=== PATIENT | female | born 1995 | race Caucasian/White ===

== ENCOUNTER → 2016-10-04 | Outpatient (CLI) | payer BC ==
--- NOTE | 2016-10-04 11:49 | XR ---
EXAMINATION TYPE: XR wrist complete RT DATE OF EXAM: 10/04/2016 11:43 AM COMPARISON: NONE HISTORY: Pain TECHNIQUE: Four views submitted. FINDINGS: The osseous structures are intact. The joint spaces are preserved and there is no acute fracture or dislocation. IMPRESSION: 1. No definite acute fracture or dislocation if symptoms persist, follow-up study in 7 to 10 days wo uld be suggested
== END ==
LOC: RADXRMAIN 11:30
PROVIDERS: ATTEND Family Medicine
DX: M25.531 Pain in right wrist (principal)

== ENCOUNTER → 2018-08-14 | Outpatient (CLI) | payer BC ==
--- NOTE | 2018-08-15 08:45 | XR ---
EXAMINATION TYPE: XR knee complete bilateral DATE OF EXAM: 08/14/2018 COMPARISON: NONE HISTORY: Pain TECHNIQUE: Three views are submitted of each knee. FINDINGS: Joint spaces are preserved. Osseous structures are intact. No acute fracture seen. Small amount of fluid in the suprapatellar bursa. IMPRESSION: 1. No acute fracture or dislocation. There is a small amount of fluid in the suprapatellar bursa. If symptoms persist or concern for internal derangement consider MRI.
== END | disposition home or self-care (01) ==
LOC: RADXRMAIN 15:51
PROVIDERS: ATTEND Family Medicine
DX: M25.462 Effusion, left knee (principal); M25.461 Effusion, right knee; M23.90 Unspecified internal derangement of unspecified knee

== ENCOUNTER → 2018-08-20 | Outpatient (CLI) | payer BC ==
--- NOTE | 2018-08-20 15:40 | MR ---
EXAMINATION TYPE: MR knee RT wo con DATE OF EXAM: 08/20/2018 COMPARISON: Bilateral knee x-ray from 6 days ago. HISTORY: Outer Right knee pain for 2 to 3 months after recent fall injury per patient. Internal arran gement of right knee per order. TECHNIQUE: Multiplanar, multisequence images of the knee is performed without IV contrast. FINDINGS: MEDIAL MENISCUS: Anterior and posterior horns are intact without tear. LATERAL MENISCUS: Anterior and posterior horns are intact without tear. CRUCIATE LIGAMENTS: The anterior and posterior cruciate ligaments are intact and unremarkable. COLLATERAL LIGAMENTS: The medial collateral ligament and lateral collateral ligament complex are inta ct and unremarkable. EXTENSOR MECHANISM: Visualized quadriceps and patellar tendons are intact. EFFUSION: No significant suprapatellar joint effusion. POPLITEAL CYST: No popliteal/johnson cyst. TRICOMPARTMENT SPACES: Mild narrowing and spurring patellofemoral compartment is present. CARTILAGE: Tricompartment articular cartilage is preserved, there is no significant chondromalacia pa tella. BONE MARROW SIGNAL: A 3 mm low T1 and T2 focus anterolateral tibial plateau sagittal image 23 and cor onal image 15 is presumed benign. OTHER: Small amount of increased fluid posterior lateral knee muscles is noted. IMPRESSION: Muscular strain injury posterior lateral knee muscles involving lateral gastrocnemius. No meniscal or ligamentous tear is seen.
== END | disposition home or self-care (01) ==
LOC: RADMRIMAIN 12:04
PROVIDERS: ATTEND Family Medicine
DX: S86.811A Strain of other muscle(s) and tendon(s) at lower leg level, right leg, initial encounter (principal)

== ENCOUNTER → 2018-10-09 | Outpatient (CLI) | payer BC ==
[2018-10-09 11:36] LABS: Potassium 4.4 mmol/L (3.5-5.1)
[2018-10-09 11:53] LABS: Basophils # (A) 0.1 k/uL (0-0.2); Basophils % (A) 1 %; Eosinophils # (A) 0.1 k/uL (0-0.7); Eosinophils % (A) 2 %; HCT 43.7 % (34.0-46.0); Lymphocytes # (A) 1.3 k/uL (1.0-4.8); Lymphocytes % (A) 23 %; MCH 29.9 pg (25.0-35.0); MCV 93.5 fL (80.0-100.0); Mean Platelet Volume 7.7; Monocytes # (A) 0.4 k/uL (0-1.0); Monocytes % (A) 7 %; Neutrophils # (A) 3.7 k/uL (1.3-7.7); Neutrophils % (A) 65 %; Platelet Count 259 k/uL (150-450); RBC 4.67 m/uL (3.80-5.40); RDW 12.6 % (11.5-15.5); WBC 5.6 k/uL (3.8-10.6)
== END | disposition home or self-care (01) ==
LOC: LABPAT 10:14
PROVIDERS: ATTEND Orthopaedic Surgery
DX: Z01.812 Encounter for preprocedural laboratory examination (principal); M23.91 Unspecified internal derangement of right knee
CPT/HCPCS: 80051; 85025

== ENCOUNTER 2018-10-23 08:53 | Day surgery (SDC) | payer BC ==
[2018-10-21 12:29] VITALS: BMI 24.8
--- NOTE | 2018-10-22 10:13 | HP ---
HISTORY AND PHYSICAL DATE OF SERVICE: 10/23/2018 Kwame Francis is a 23-year-old patient seen with progressive right knee pain. We discussed options. She elected to proceed with arthroscopy. Consent was obtained. PAST MEDICAL HISTORY: Noncontributory. PAST SURGICAL HISTORY: Noncontributory. DAILY MEDICATIONS: None. ALLERGIES: None reported. SOCIAL HISTORY: She denies tobacco use. PHYSICAL EVALUATION OF THE RIGHT KNEE: Range of motion is +3 to 135 degrees. Tenderness along the medial joint line. Positive medial Castro's. Patellar crepitus. Some patellofemoral compression. Ligaments stable. Hip rotation without pain. Distal neurovascular exam is intact. Radiographs of the right knee revealed mild osteoarthritic changes. An MRI of the right knee revealed mild osteoarthritis. IMPRESSION: Internal derangement, right knee with meniscal tear versus osteochondral tear. PLAN: Right knee arthroscopy with partial meniscectomy versus chondroplasty and debridement. MMODL / IJN: [id number] /
[~2018-10-23 08:53] MED LIST: DEXAMETHASONE SOD PHOSPHATE 10 MG/ML 1 ML VIAL IV ONE; LACTATED RINGERS 1,000 ML IV SCH; LIDOCAINE 1% 20 ML VIAL (10MG/ML) FOR IV START INTRADERMA PRN; MIDAZOLAM 2 MG/2 ML VIAL IV PRN; ONDANSETRON 4 MG/2 ML VIAL IVP ONE; SCOPOLAMINE 1.5MG/72HR PATCH TRANSDERM ONE
[2018-10-23] MEDS ORDERED: MIDAZOLAM 2 MG/2 ML VIAL ONE (10:34)
[2018-10-23] MEDS ORDERED: fentaNYL (PF) 50 MCG/ML 2 ML AMP ONE (10:34)
[2018-10-23] MEDS ORDERED: PROPOFOL 10 MG/ML 20 ML VIAL IV ONE (10:34)
[2018-10-23] MEDS ORDERED: LIDOCAINE 1% INJ 10MG/ML (20 ML MDV) ONE (10:34)
[2018-10-23] MEDS ORDERED: KETOROLAC 30 MG/ML 1 ML VIAL ONE (10:34)
[2018-10-23] MEDS ORDERED: BUPIVACAIN-EPI 0.5%-1:200,000 30 ML VIAL INTRAARTIC ONE (10:35)
--- NOTE | 2018-10-23 11:21 | P.OP ---
Date of Procedure: 10/23/18 Preoperative Diagnosis: Internal derangement right knee Postoperative Diagnosis: 1. Tear medial meniscus right knee 2. 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 Reactive synovitis medial and suprapatellar compartments right knee Procedure(s) Performed: 1. Arthroscopic partial medial meniscectomy right knee 2. Arthroscopic chondroplasty femoral sulcus right knee 3. Arthroscopic partial synovectomy medial and suprapatellar compartments right knee Anesthesia: SENAA, local Surgeon: Brayan Arora Estimated Blood Loss (ml): 5 Pathology: none sent Condition: stable Disposition: PACU Indications for Procedure: 23-year-old patient seen with progressive right knee pain. After treatment options were discussed, she elected to proceed with arthroscopy Operative Findings: See description of procedure Description of Procedure: Patient was taken to the operative suite. Patient underwent a general anesthetic by the department of anesthesia. Patient was given preoperative antibiotics. The right lower extremity was placed in a well-padded arthroscopic leg dang. The right leg was prepped and draped in the normal sterile orthopedic fashion. A lateral parapatellar and suprapatellar incision was made. Trochars were inserted. Arthroscopy was initiated. Suprapatellar pouch revealed diffuse thick reactive synovitis. The patellofemoral joint appeared to articulate congruently. There was grade 1 chondromalacia of the central portion of the femoral sulcus with some small osteochondral tears present. The scope was guided into the medial gutter. No loose bodies or plica were identified. The scope was then guided into the medial compartment. A medial parapatellar incision was made. Trocar inserted followed by probe. There was a small radial tear at the junction of the midbody and posterior horn medial meniscus. There was thick reactive synovitis anteriorly. There was no chondromalacia. I performed a partial medial meniscectomy down to stable tissue. I performed a partial synovectomy decompressing the thick reactive synovitis. The residual meniscus was stable. There was good decompression of synovitis. Scope and probe were then guided into the intercondylar notch. Cruciates were identified, probed and found to be stable. The scope and probe were then guided into lateral compartment. Lateral meniscus was probed and found to be stable. There was no synovitis. There was no chondromalacia. The probe was removed. The scope was in guided back into the suprapatellar compartment. I introduced a motorized shaver into the suprapatellar compartment. I performed a chondr oplasty of the femoral sulcus down to stable articular tissue. I performed a partial synovectomy decompressing the thick reactive synovitis within the super compartment. The shaver was removed. I took one more look around the entire knee, no residual debris. Instruments were now removed from the joint. The joint was infiltrated with .25% Marcaine. Steri-Strips were applied to the portal sites. Sterile dressings were applied. The patient was placed into a SERINA hose. No tourniquet was utilized. The patient was awakened, transferred to a bed and taken to recovery stable satisfactory condition.
[2018-10-23] MEDS: HYDROmorphone 0.5 MG/0.5 ML SYRINGE IVP PRN ×4 (11:39→12:07)
[2018-10-23 11:53] VITALS: TEMP 96.5
[2018-10-23 13:27] VITALS: RESP 16
[2018-10-23] MEDS ORDERED: HYDROcodone/APAP 5-325MG 1 EACH TAB PO ONE (13:36)
[2018-10-23 14:25] VITALS: BP 120/72; PULSE 98
== END 2018-10-23 14:10 | disposition home or self-care (01) ==
LOC: OR 08:53
PROVIDERS: ATTEND Orthopaedic Surgery
DX: S83.241A Other tear of medial meniscus, current injury, right knee, initial encounter (principal); X58.XXXA Exposure to other specified factors, initial encounter; M94.261 Chondromalacia, right knee; M65.861 Other synovitis and tenosynovitis, right lower leg; Z79.3 Long term (current) use of hormonal contraceptives
CPT/HCPCS: 81025; 29881; J2250; J1100; J2405; J0690; J2001; J3010; J1885; J2704; J1170